=== PATIENT | male | born 1945 | race Native Hawaiian/Other Pacific Islander ===

== ENCOUNTER 2020-10-29 12:35 | Outpatient (CLI) | payer OTHER ==
[2020-10-29 13:53] LABS: PLATELET COUNT 241 K/uL (142-355)
[2020-10-29 14:19] LABS: POTASSIUM 3.7 mmol/L (3.6-5.2)
== END 2020-10-29 20:30 | disposition home or self-care (01) ==
LOC: LAB 12:35
PROVIDERS: ATTEND Nurse Practitioner Family
DX: D51.0 Vitamin B12 deficiency anemia due to intrinsic factor deficiency (principal); E55.9 Vitamin D deficiency, unspecified; E56.8 Deficiency of other vitamins; M05.79 Rheumatoid arthritis with rheumatoid factor of multiple sites without organ or systems involvement; M81.0 Age-related osteoporosis without current pathological fracture
CPT/HCPCS: 80053; 82306; 82607; 85027; 85652; 86140

== ENCOUNTER 2020-10-30 10:54 | Outpatient (CLI) | payer OTHER | END 2020-10-30 21:52 | disposition home or self-care (01) | LOC: LAB 10:54 | PROVIDERS: ATTEND Nurse Practitioner Family | DX: D51.0 Vitamin B12 deficiency anemia due to intrinsic factor deficiency (principal); E55.9 Vitamin D deficiency, unspecified; E56.8 Deficiency of other vitamins; M05.79 Rheumatoid arthritis with rheumatoid factor of multiple sites without organ or systems involvement; M81.0 Age-related osteoporosis without current pathological fracture | CPT/HCPCS: 83970 ==

== ENCOUNTER 2020-11-06 11:26 | Outpatient (CLI) | payer OTHER | END 2020-11-06 22:41 | disposition home or self-care (01) | LOC: LAB 11:26 | PROVIDERS: ATTEND Nurse Practitioner Family | DX: D51.0 Vitamin B12 deficiency anemia due to intrinsic factor deficiency (principal); M05.79 Rheumatoid arthritis with rheumatoid factor of multiple sites without organ or systems involvement; M35.00 Sjogren syndrome, unspecified; L51.1 Stevens-Johnson syndrome; I25.10 Atherosclerotic heart disease of native coronary artery without angina pectoris; E55.9 Vitamin D deficiency, unspecified; E56.8 Deficiency of other vitamins; M81.0 Age-related osteoporosis without current pathological fracture | CPT/HCPCS: 82330 ==

== ENCOUNTER 2021-01-04 12:53 | Outpatient (CLI) | payer OTHER ==
[2021-01-04 13:23] LABS: PLATELET COUNT 271 K/uL (142-355)
[2021-01-04 13:29] LABS: POTASSIUM 4.1 mmol/L (3.6-5.2)
== END 2021-01-04 21:29 | disposition home or self-care (01) ==
LOC: LAB 12:53
PROVIDERS: ATTEND Nurse Practitioner Family
DX: D51.0 Vitamin B12 deficiency anemia due to intrinsic factor deficiency (principal); E55.9 Vitamin D deficiency, unspecified; M05.79 Rheumatoid arthritis with rheumatoid factor of multiple sites without organ or systems involvement; M85.89 Other specified disorders of bone density and structure, multiple sites; Z79.899 Other long term (current) drug therapy
CPT/HCPCS: 80053; 82607; 85027; 85652; 86140